=== PATIENT | female | born 1995 | race Caucasian/White ===

== ENCOUNTER 2017-02-12 11:31 | Inpatient (IN) | payer OTHER, MEDICAID ==
[~2017-02-12] VITALS: Ht 149.9 cm; Wt 69.1 kg
[2017-02-12] VITALS (7 sets, daily range): BP systolic 98–122; BP diastolic 36–73; PULSE 121–143; RESP 25–33; O2SAT 97–100
[~2017-02-12 11:31] MED LIST: CITA20TA11 PO; INSU100I18 SUBQ; INSU100V7 SUBQ
--- NOTE | 2017-02-12 11:56 | ED.REPORT ---
HPI-General Illness Date of Service Feb 12, 2017 ED Provider: Dr. Colmenares A 21 year old female with a history of type I diabetes, who uses an insulin pump , presents to the ED, accompanied by sister, complaining of high blood sugar onset yesterday, the patient says she is out of Humalog. Her last measurable glucose was yesterday, and was around 600. Her glucometer at home will not register her glucose level anymore as it is too high. Associated symptoms include vomiting onset 0300, and lower back pain. She denies any sense of infection. Nursing Notes Stated Complaint: HIGH BLOOD SUGAR Chief Complaint: General Complaint Nursing Notes Reviewed: Yes Allergies: Coded Allergies: [place] (Verified Allergy, Unknown, 10/20/15) gluten (Verified Allergy, Unknown, 10/20/15) Scheduled Insulin Lispro (HumaLOG U100 Insulin Pen) 100 Unit/1 Ml Insuln.pen Unknown Dose SUBQ TIDWM Miscellaneous Medications ([insulin pump]) Insulin Glargine,Hum.rec.anlog (Toujeo Solostar) 300 Unit/Ml (1.5 Ml) Insuln.pen General Time Seen by MD: 11:55 Chief Complaint Other (High blood sugar) Hx Obtained From: Patient, Other family... (sister) Arrived By: Walk-in Onset Occurred: Yesterday Symptom Duration: Since onset Severity: Current: Moderate Severity: Maximum: Moderate Recent Healthcare: No recent doctor visit Similar Sx Previous: No Past Medical History Past Medical History Insulin-dependent diabetes with recurrent multiple episodes of DKA Idiopathic pancreatitis (recurrent) Solitary right kidney Irregular periods scoliosis Celiac disease Reports: Diabetes mellitus Past Surgical History Direct Central line placement Reports: Cholecystectomy Smoking History Light Tobacco Smoker Social History Alcohol Use: "Social" Drug Use: Denies drug use Ambulatory Status Independent Review of Systems High blood sugar. Denies sense of infection. Full Review of Systems Constitutional: Denies: Chills, Fever GI: Reports: Vomiting Musculoskeletal: Reports: Back pain Complete sys rev & neg: except as marked. Physical Exam Vital Signs Vital Signs Date Time Temp Pulse Resp B/P Pulse Ox O2 Delivery O2 Flow Rate FiO2 02/12/17 13:34 121 28 107/36 100 02/12/17 12:45 132 32 115/44 100 Room Air 02/12/17 12:27 131 33 98 Room Air 02/12/17 11:43 36.8 122 32 116/73 97 Room Air Initial VS: Reviewed General/Constitutional: Awake, Alert Alertness: Positive: Lethargic, Responds to verb stimuli, Somnolent Distress / Hydration: Positive: Dehydration severe, Distress severe Behavior: Positive: Hyperventilating, Withdrawn Appearance / Presentation: Positive: Toxic appearing, Uncomfortable, Underweight Head / Eyes: Atraumatic, Normocephalic, PERRL, EOMI ENT: Atraumatic Mouth: Positive: Mucous membranes dry Respiratory / Chest: Atraumatic, Breath sounds NL, Breath sounds = bilat, No respiratory distress, No rales, No rhonchi, No wheezing Cardiovascular: Heart rate NL, Regular rhythm, Heart sounds NL, No gallop, No murmurs, No rubs Tenderness/Guarding/Rebound: Positive: Tender diffuse (mild) Skin: Atraumatic, Color NL, Warm, Dry Neurologic: Oriented X3, Speech NL Interpretation & Diagnostics Lab Results Interpretation Result Diagram: 02/12/17204402/13/17 0440 Test 02/12/17 12:15 02/12/17 13:53 Hemoglobin A1c 8.6% (4.8-5.6) Lipase 12U/L (13-60) Hold Lane Top Tube Received (Received) Ketones Moderate (Negative) Urine Color Straw (YELLOW) Urine Appearance Hazy (CLEAR,HAZY) Urine pH 5.5 (5.0-8.0) Urine Specific [place] 1.015 (1.003-1.035) Urine Protein Tracemg/dL (NEG,TRACE) Urine Glucose (UA) 1000mg/dL (NEGATIVE) Urine Ketones 80mg/dL (NEGATIVE) Urine Occult Blood Trace (NEGATIVE) Urine Nitrite Negative (NEGATIVE) Urine Bilirubin Negative (NEGATIVE) Urine Urobilinogen Normalmg/dL (NORMAL) Urine Leukocyte Esterase Negative (NEGATIVE) Urine RBC 0-2/hpf (0-2) Urine WBC 0-5/hpf (0-5) Urine Epithelial Cells Occasional/hpf (NONE-MOD) Urine Crystals None seen (NONE SEEN) Urine Bacteria Few/hpf (NONE-FEW) Urine Hyaline Casts None/lpf (NONE) Urine Granular Casts None seen (NONE SEEN) Urine Waxy Casts None seen (NONE SEEN) Urine Red Blood Cell Casts None seen (NONE SEEN) Urine White Blood Cell Casts None seen (NONE SEEN) Urine Mucus None seen (None Seen) Urine Trichomonas None seen (NONE SEEN) Urine Yeast None (NONE SEEN) Urinalysis Comment None Urine Culture Reflexed Not indicated X-Ray Chest Interpretation Chest Xray Interpretation: IMPRESSION: Tip of central venous catheter projects over the atriocaval junction. Dictated by: Leny Mayo MD, PhD on 02/12/2017 at 15:12 Approved by: eLny Mayo MD, PhD on 02/12/2017 at 15:13 Interpretation / Wet Read by: Interpret - Radiologist Procedures Central Line Placement Time: 14:24 Procedure Performed by: ED physician Consent / Setup / Site Prep: Consent from patient, Time-out performed, Pulse oximeter applied, cardiac monitor applied, Hand hygiene observed, Standard surgical scrub, Max barrier precaution, Sterile drapes applied, Position supine Skin Preparation Agent: Hibiclens - Chlorhexidine Local Anesthesia: Lidocaine 1% Side / Location / Ultrasound: Internal jugular right Catheter / Lumen / Technique: Triple lumen, Seldinger technique, Good blood return Central Line Tip Location: Cath tip positioned in (Superiour Vena Cava) Post-Procedure / Complications: Dressing placed, Tolerated procedure well, Patient stable Re-Eval/Medical Decision Med Decision/Clinical Course Patient is extremely toxic appearing initially and peripheral IV access was ultimately established in the right before meals with a 20-gauge Angiocath. This seemed reasonably sufficient for time we were able to get in to an half to 3 L in a couple of hours improving her vital signs moderately. Ultimately we decided that central venous catheterization was appropriate given the desire to administer more volume as well as a titrated insulin drip. Repeat basic metabolic panel showed persistent hyperkalemia this information was obtained as the patient was being transferred to the ICU and this information was transmitted to Dr. iLao. The initial hyperkalemia value was treated with IV calcium but with no other agents because the EKG was normal, that is, not showing signs of acute hyperkalemia with T wave changes, and because of my concern of causing inadvertent hypokalemia as the acidosis was likely to be corrected shortly. Source of Hx: Old records Time of Eval: 12:30 Re-Evaluation/Progress Note: Rechecked patient who is in a lot of pain. IV is established, and she is doing well with IV. Time of Eval: 14:50 Patient Status: Condition improved Re-Evaluation/Progress Note: Rechecked patient who is stable after CLP procedure. Time of Eval: 14:24 Re-Evaluation/Progress Note: Rechecked patient and perfromed Central Line Placement Procedure. Consultation : Referral / Consult Name: Jarrod Liao MD Consulted With: Hospitalist Statistical Developer: Agrees with eval, Agrees with plan, Accepts admit Note: At [facility] 1430, dicussed patient case with Dr. Liao who accepts patient admit. Counseled Regarding: Diagnosis, Lab results, Need for follow-up, When/why to return to ED Discharge & Departure Primary Impression: DKA, type 1 Diabetes mellitus complication detail: without coma Qualified Code: E10.10 - Type 1 diabetes mellitus with ketoacidosis without coma Additional Impressions: Severe dehydration Hyperkalemia Disposition: ADMITTED TO HOSPITAL Referrals: Sonu Stoddard MD (PCP) Crit Care Except Billable Proc Time Spent: 30-74 minutes Services Performed: Patient management by me, Time spent at bedside, Reviewing test results, Discussing patient care Scribe Attestation Portions of this note were transcribed by Miguel Dillard. I, Dr. Colmenares personally performed the history, physical exam and medical decision-making; I reviewed and confirmed the accuracy of the information in the transcribed note. Signed by: Marleni Falcon, 02/12/2017, 1540. copies to: Sonu Stoddard MD, Kirk H MD Feb 12, 2017 11:55 Miguel Dillard Feb 12, 2017 12:00 Time: 14:24 Procedure Performed by: ED physician Consent / Setup / Site Prep: Consent from patient, Time-out performed, Pulse oximeter applied, cardiac monitor applied, Hand hygiene observed, Standard surgical scrub, Sterile drapes applied Skin Preparation Agent: Hibiclens - Chlorhexidine Post-Procedure / Complications: Dressing placed, Tolerated procedure well, Patient stable Re-Eval/Medical Decision Source of Hx: Old records Time of Eval: 12:30 Re-Evaluation/Progress Note: Rechecked patient who is in a lot of pain. IV is established, and she is doing well with IV. Time of Eval: 14:50 Patient Status: Condition improved Re-Evaluation/Progress Note: Rechecked patient who is stable after CLP procedure. Time of Eval: 14:24 Re-Evaluation/Progress Note: Rechecked patient and perfromed Central Line Placement Procedure. Consultation : Referral / Consult Name: Jarrod Liao MD Consulted With: Hospitalist Statistical Developer: Agrees with eval, Agrees with plan, Accepts admit Note: At approximatley 1430, dicussed patient case with Dr. Liao who accepts patient admit. Counseled Regarding: Diagnosis, Lab results, Need for follow-up, When/why to return to ED Discharge & Departure Disposition: ADMITTED TO HOSPITAL Referrals: Sonu Stoddard MD (PCP) Crit Care Except Billable Proc Time Spent: 30-74 minutes Services Performed: Patient management by me, Time spent at bedside, Reviewing test results, Discussing patient care Scribe Attestation Portions of this note were transcribed by Miguel Dillard. Dr. Darrian Cao personally performed the history, physical exam and medical decision-making; I reviewed and confirmed the accuracy of the information in the transcribed note. Signed by: Marleni Falcon, 02/12/2017, 1540. copies to: Sonu Stoddard MD, Kirk H MD Feb 12, 2017 11:55 Miguel Dillard Feb 12, 2017 12:00 Crit Care Except Billable Proc Time Spent: 30-74 minutes Services Performed: Patient management by me, Time spent at bedside, Reviewing test results, Discussing patient care Scribe Attestation Portions of this note were transcribed by Miguel Dillard. Dr. Darrian Cao personally performed the history, physical exam and medical decision-making; I reviewed and confirmed the accuracy of the information in the transcribed note. Signed by: Marleni Falcon, 02/12/2017, 1226. copies to: Sonu Stoddard MD, Kirk H MD Feb 12, 2017 11:55 Miguel Dillard Feb 12, 2017 12:00
[2017-02-12] MEDS ORDERED: 0.9% Sodium Chloride 1,000 ML IV ONE ×4 (11:59→18:35)
[2017-02-12] MEDS ORDERED: 0.9% Sodium Chloride 1,000 ML IV SCH (12:00)
[2017-02-12] MEDS ORDERED: Ondansetron 2 mg/mL 2 mL Inj IVPUSH PRN ×2 (12:00→14:10)
--- NOTE | 2017-02-12 12:25 | ABG ---
DateTimeAnalyzed 12:21:00 -_ pH ____7.062 - pCO2 ____9.1__ -mmHg pO2 183 -mmHg HCO3- ____2.5__ -mmol/L ABE __-28.8__ -mmol/L tHb ___15.5__ -g/dL O2Hb ___91.8__ -% COHb ____5.3__ -% MetHb ____1.1__ -% sO2 ___98.1__ -% FIO2 ___21.0__ -% Drawn By as - Date/Time Notified____ 12:24:00 -_ Notified By AMS - Notified Whom DR MILAGROS - B 759 -mmHg tO2 ___20.4__ -Vol% Kevyn test N/A -
[2017-02-12] MEDS ORDERED: INSU300I (12:30)
[2017-02-12] MEDS ORDERED: insulin pump (12:33)
[2017-02-12 12:34] LABS: BASOPHILS % (AUTO) 0.2 % (0-3); EOSINOPHILS % (AUTO) 0 % (0-5); MONOCYTES % (AUTO) 4.8 % (4-12); Mean Corpuscular Hemoglobin 29.3 pg (27.0-35.0); Mean Corpuscular Volume 86.2 fL (81-100); NEUTROPHILS % (AUTO) 88.8 % (40-74); Platelet Count 439 bil/L (150-400)
[2017-02-12] MEDS: Insulin Human REGular 100 Units/100 mL NS IV SCH ×2 (12:40)
[2017-02-12] MEDS ORDERED: D5W1/2NS 1,000 mL IV PRN (12:40)
[2017-02-12] MEDS ORDERED: Insulin Human REGular 300 Unit/3 mL Inj IV PRN (12:40)
[2017-02-12] MEDS: HYDROmorphone 1 mg/mL Inj IVPUSH PRN ×2 (12:52→16:21)
[2017-02-12 13:44] LABS: Lipase 12 U/L (13-60); Magnesium 2.5 mg/dL (1.6-2.6)
[2017-02-12] MEDS ORDERED: Calcium GLUCOnate 10% (Gm) 1 Gm/10 mL Inj ONE (13:45)
[2017-02-12] MEDS ORDERED: Calcium GLUCOnate 10% (Gm) 1 Gm/10 mL Inj IVPUSH ONE (13:55)
[2017-02-12] MEDS ORDERED: Polyethylene Glycol (PEG) 17 Gm Powder PO PRN (14:10)
[2017-02-12] MEDS ORDERED: Alum-Mag Hydrox-Simeth 30 mL Suspension PO PRN (14:10)
--- NOTE | 2017-02-12 14:20 | PCM.HPMED ---
Subjective Date of Service Feb 12, 2017 Primary Provider: Admitting Physician: Primary Care Physician: Rosalba Han PA-C Attending Physician: Chief Complaint: DKA History of Present Illness: Ms. Penaloza is a 21-year-old female with past medical history of pancreatitis and type I diabetes (wears insulin pump) presented to [facility] Emergency Department in the company of her sister secondary to high blood glucose levels 2 days. Patient reportedly ran out of her insulin for her pump 2 days ago. She reported blood sugars yesterday at 555, stating that she could not take her she states she could not take her insulin yesterday as she ran out or perhaps it . She states that this morning her blood sugars were over 600 and her home machine could not read any higher). She reportedly took 30 units of long-acting insulin, Trojan@0 800 today. She is complaining of lower back pain, nausea with vomiting 1 episode this morning at 0 300. Denies headache, chest pain, visual changes or symptoms. She is somewhat confused though his awake and alert and able to answer questions appropriately A comprehensive review of systems was conducted with the patient and found to be negative except as above in the history of present illness. In the emergency department patient was given 2 L fluid, and additional liter was confusing at time of interview. Calcium gluconate and insulin bolus. Patient also received IV access through a central line. Allergies Coded Allergies: [place] (Verified Allergy, Unknown, 10/20/15) gluten (Verified Allergy, Unknown, 10/20/15) Home Medications Per med rec home meds include: Insulin glargine Insulin lispro Discontinued home meds reported Citalopram 20 mg by mouth daily Insulin glargine 15 units subcutaneous at bedtime PMH Insulin-dependent diabetes with recurrent multiple episodes of DKA Idiopathic pancreatitis (recurrent) Solitary right kidney Celiac's disease Irregular periods scoliosis Celiac disease. Allerigic to almond nuts. Reports: Diabetes mellitus Surgical History Reports cholecystectomy Social History Hx Alcohol Use: No Hx Substance Use: No Hx Tobacco Use: No Smoking Status: Light Tobacco Smoker Living Arrangement: with Family (lives with mother who is currently out of town) Exam Vital Signs Vital Sign - Last Date Time Temp Pulse Resp B/P Pulse Ox O2 Delivery O2 Flow Rate FiO2 02/12/17 13:34 121 28 107/36 100 02/12/17 12:45 Room Air 02/12/17 11:43 36.8 Exam General: Patient laying in hospital bed, awake and alert somewhat appropriately interactive in mild distress. HEENT: Normocephalic, atraumatic. External ears without defect. Pupils equal, round, and reactive to light and accommodation. Anicteric sclerae, moist conjunctivae, and no lid lag. Oropharynx free of erythema and cobble stoning with moist mucosa. Neck: Supple with full range of motion. No jugular venous distension. No bruits. Cardiovascular: Regular rate and rhythm with no murmurs, rubs, or gallops appreciated Pulmonary: Clear to auscultation bilaterally with no crackles, wheezes, or rhonchi. Normal respiratory effort with no use of accessory muscles. Abdomen: Bowel tones present. Soft, nontender, nondistended. No hepatosplenomegaly or masses appreciated. Extremities: No clubbing, cyanosis, edema appreciated Skin: Normal temperature, turgor, and texture Neurological: Cranial nerves grossly intact Psychiatric: Somnolent affect, able to converse appropriately though mildly confused. Lab and Diagnostics Result Diagram: 02/12/17 1215 02/12/17 1215 X-Rays, CTs and MRIs . X-RAY CHEST ONE VIEW, PORTABLE IMPRESSION: Tip of central venous catheter projects over the atriocaval junction. Dictated by: Leny Mayo MD, PhD on 02/12/2017 at 15:12 Additional Diagnostics: DateTimeAnalyzed 12:21:00 -_ pH ____7.062 - pCO2 ____9.1__ -mmHg pO2 183 -mmHg HCO3- ____2.5__ -mmol/L ABE __-28.8__ -mmol/L tHb ___15.5__ -g/dL O2Hb ___91.8__ -% COHb ____5.3__ -% MetHb ____1.1__ -% sO2 ___98.1__ -% FIO2 ___21.0__ -% Drawn By as - Date/Time Notified____ 12:24:00 -_ Notified By AMS - Notified Whom DR MILAGROS - B 759 -mmHg tO2 ___20.4__ -Vol% Kevyn test N/A - Assessment & Plan Ms. Penaloza is a 21-year-old female with past medical history of pancreatitis and type I diabetes (wears insulin pump) admitted for DKA. Hospital day 1 1. Sirs. Present on admission. Ongoing - Criteria met on admission with tachycardia, tachypnea, leukocytosis - Echocardiogram tachypnea most likely secondary to #2. - Leukocytosis most likely secondary to stress response - Urine showed no evidence of infection - Lactic acid pending 2. Diabetic ketoacidosis.Acute on chronic. present on admission. Ongoing - Secondary to medication noncompliance - Blood glucose found to be 977 in ED - Anion gap 38 - To 3 L given ED - Continue aggressive IV fluid replenishment with normal saline - DKA IV protocol initiated - CMP, MG every 4 3. Hyperkalemia. Acute. Present on admission. Ongoing - On admission potassium 7.5, repeat level VII.4 status post calcium gluconate administration 4. YANI. Present on admission. Ongoing - Fluids as in #1 5. Type I diabetes. Chronic. Present on admission. Ongoing - DKA IV protocol as in #1 6. Nausea and vomiting. Acute. Present on admission. Ongoing - Secondary to #1 - Zofran when necessary 7. Leukocytosis. Acute. Present on admission. Ongoing - Most likely secondary to stress response - Afebrile - Urinalysis showed no evidence of infection - We will continue to monitor Patient Status: Patient was admitted under inpatient status with expected length of stay greater than two midnights due to severity of presenting symptoms , risk of adverse event, and complexity of treatment plan. Pain Evaluation: Adequate Pain Control VTE Prophylaxis: Sub-Q Heparin (Unfractionated) Resuscitation Status: CPR: Attempt Resuscitation Attending Statement The patient was seen and examined together with Dr. Douglas on 02/12/2017 and I agree with the history, exam and plan as outlined in the note above. . copies to: Rosalba Han PA-C, GILES A DO Feb 12, 2017 14:20 Jarrod Liao MD Feb 13, 2017 07:48
[2017-02-12 14:32] LABS: APPEARANCE,URINE HAZY (CLEAR,HAZY); COLOR,URINE STRAW (YELLOW); OCCULT BLOOD,URINE TRACE (NEGATIVE); PH,URINE 5.5 (5.0-8.0); UROBILINOGEN,URINE NORMAL (NORMAL)
--- NOTE | 2017-02-12 15:15 | DRSVH ---
PROCEDURE: X-RAY CHEST ONE VIEW, PORTABLE ([id number]) INDICATIONS: POST CENTRAL LINE PLACEMENT TECHNIQUE: One view of the chest was acquired. COMPARISON: [facility], CR, XR CHEST 1VW (PORTABLE), 10/07/2015, 11:36. FINDINGS: Surgical changes and devices: Central venous catheter projects to the atriocaval junction via a right IJ approach. Lungs and pleura: No pleural effusions or pneumothorax. Lungs are clear. Mediastinum: Mediastinal contours appear normal. Heart size is normal. Bones and chest wall: No suspicious bony lesions. Overlying soft tissues appear unremarkable. IMPRESSION: Tip of central venous catheter projects over the atriocaval junction. Dictated by: Leny Mayo MD, PhD on 02/12/2017 at 15:12 Approved by: Leny Mayo MD, PhD on 02/12/2017 at 15:13
[2017-02-12] MEDS: 0.9% Sodium Chloride 1,000 ML IV SCH ×2 (16:22→23:05)
[2017-02-12] MEDS: Heparin 5,000 Unit/mL Inj SUBQ SCH (16:52)
[2017-02-12 17:04] LABS: Magnesium 2.1 mg/dL (1.6-2.6)
--- NOTE | 2017-02-12 18:30 | NUR ---
Admit Admitted to floor around 1600. Drowsy, but oriented. Moaning upon arrival. C/O lower back pain 02/03. Dilaudid 1 mg IVP effective. Patient sleeping most of shift now. Completed 4th L NS and now IVF running at 100/hr. HR from 130s to 150s, ST. MDs aware. Current HR 135 after 4th Liter of fluid. HR increased with any activity. MD wanting patient to stay in bed. Using bedpan for now. BP with maps 64-67. MDs aware. Insulin gtt per DKA protocol. Last BS was 655. Current glucose pending. See DKA flow sheet. ICE chips only for now. Oral swabs provided for dry mouth. Denies nausea. Continue to monitor closely.
[2017-02-12 20:54] LABS: BASOPHILS % (AUTO) 0.1 % (0-3); EOSINOPHILS % (AUTO) 0 % (0-5); MONOCYTES % (AUTO) 12.8 % (4-12); Mean Corpuscular Hemoglobin 29.8 pg (27.0-35.0); Mean Corpuscular Volume 86.6 fL (81-100); NEUTROPHILS % (AUTO) 70.6 % (40-74); Platelet Count 303 bil/L (150-400)
[2017-02-12 21:14] LABS: Magnesium 1.8 mg/dL (1.6-2.6)
[2017-02-13] MEDS: Insulin Human REGular 100 Units/100 mL NS IV SCH ×2 (00:22)
[2017-02-13] MEDS: Heparin 5,000 Unit/mL Inj SUBQ SCH ×3 (00:23→15:57)
[2017-02-13 00:30] VITALS: BP 114/70; PULSE 125; RESP 18; O2SAT 100
[2017-02-13 01:56] LABS: Magnesium 1.8 mg/dL (1.6-2.6)
[2017-02-13] MEDS: 0.9% Sodium Chloride 1,000 ML IV SCH ×2 (03:50→12:29)
[2017-02-13 04:30] VITALS: BP 96/58; PULSE 117; RESP 20; O2SAT 99
[2017-02-13 05:26] LABS: Magnesium 1.6 mg/dL (1.6-2.6)
--- NOTE | 2017-02-13 06:02 | NUR ---
P: c/o back and R IJ site discomfort I: reposition pt E: DKA insulin drip protocol. Very sleepy, oriented. Intermittently c/o back and R IJ site discomfort. After repositioning falls back into a deep sleep. Prefers supine position. Does move self some in bed. Intermittently awakens during BS check, moans. Denies N/V. Taking in sips of water and ice chips. Tele ST. Stable BP. Febrile. Pt states feels cold. Void x 1.
[2017-02-13 08:00] VITALS: BP 102/82; PULSE 114; RESP 21; O2SAT 99
[2017-02-13 12:00] VITALS: BP 93/54; PULSE 117; RESP 25; O2SAT 98
--- NOTE | 2017-02-13 12:22 | NUR ---
Social Work: Initial Assessment D: Per EMR review, pt is a 21 year old female admitted for DKA. pt is [employer] Traditional Med Plan with DSHS supplement. PCP is Rosalba Han PA-C. NOK is Shahida Penaloza, mother. Advanced directives not completed- pt declined information from CONSTRUCTION RE[employer]. Readmit score is moderate, 3/8. CONSTRUCTION RECRUITER met with pt at bedside to discuss dcp. Sw role explained and contact info provided. Pt lives at home with her mother. She is I with ADLs and uses no DME. Pt drives and has never had HH or skilled rehab. Pt has no concerns about discharge home and states that her sister will transport her home when ready. Pt has been I during admission and no further sw needs have been identified at this time. A: pt who is I at baseline. P: Anticipate pt to discharge home when medically stable; CONSTRUCTION RECRUITER to continue to follow. ILEANA Posada
[2017-02-13] MEDS ORDERED: Sodium Chloride LOK Flush 10 mL Syringe IVFLUSH PRN ×2 (12:25)
[2017-02-13] MEDS ORDERED: Insulin Human REGular 100 Units/100 mL NS IV SCH ×2 (15:30)
[2017-02-13 16:00] VITALS: BP_SYST 108; BP_SYST 147; BP_DIAS 100; BP_DIAS 58; PULSE 114; PULSE 125; RESP 18; RESP 25; O2SAT 92; O2SAT 99
--- NOTE | 2017-02-13 17:56 | PCM.PNMED ---
Subjective Date of Service Feb 13, 2017 Subjective 21-year-old woman with type I diabetes mellitus presents with DKA due to self- management failure in insulin pump therapy. She reports feeling very sleepy but no focal complaints today. No significant nausea and vomiting. She has reduced appetite. Not getting out of bed yet. Exam Vital Signs Vital Sign - Last Date Time Temp Pulse Resp B/P Pulse Ox O2 Delivery O2 Flow Rate FiO2 02/13/17 16:00 37.1 114 25 108/58 99 Room Air Intake and Output 02/12/17 02/12/17 02/13/17 Cumulative From/Thru 15:00 23:00 07:00 02/12/17 11:43 - 02/13/17 05:06 Intake Total 2000 ml 1634 ml 2822 ml 6456 ml Output Total 500 ml 950 ml 1450 ml Balance 2000 ml 1134 ml 1872 ml 5006 ml IV Total 2000 ml 1634 ml 2822 ml 6456 ml Output Urine Total 500 ml 950 ml 1450 ml # Voids 1 1 # Bowel Movements 0 0 Exam General: Generally healthy, slightly pale in no acute distress HEENT: sclerae anicteric, oral mucosa moist Neck: no JVD Chest: clear to auscultation Cardiac: S1S2, no murmur Abdomen: BS normal, non-tender Extremities: No pitting edema Neuro: A&O, cranial nerves symmetric, motor strength 5/5, coordination normal IVs and Medications Medications Reviewed: Medications were reviewed in detail Lab and Diagnostics Result Diagram: 02/12/175 02/13/17 1604 X-Rays, CTs and MRIs . X-RAY CHEST ONE VIEW, PORTABLE IMPRESSION: Tip of central venous catheter projects over the atriocaval junction. Dictated by: Leny Mayo MD, PhD on 02/12/2017 at 15:12 Additional Diagnostics DateTimeAnalyzed 12:21:00 -_ pH ____7.062 - pCO2 ____9.1__ -mmHg pO2 183 -mmHg HCO3- ____2.5__ -mmol/L ABE __-28.8__ -mmol/L tHb ___15.5__ -g/dL O2Hb ___91.8__ -% COHb ____5.3__ -% MetHb ____1.1__ -% sO2 ___98.1__ -% FIO2 ___21.0__ -% Drawn By as - Date/Time Notified____ 12:24:00 -_ Notified By AMS - Notified Whom DR MILAGROS - B 759 -mmHg tO2 ___20.4__ -Vol% Kevyn test N/A - Assessment & Plan 1. Sirs. Present on admission. Criteria met on admission with tachycardia, tachypnea, leukocytosis. MAXIMUM TEMPERATURE was 37.8. Chest x-ray was clear. Urinalysis unremarkable. No focal symptoms to suggest infection at other source. - Resolved. 2. Diabetic ketoacidosis.Acute on chronic. Anion gap 38 on admission with positive ketones. Arterial pH 7.06 on admission with PaCO2 9. Glucose 977 on presentation. DKA secondary to medication noncompliance. - Reduce frequency of electrolyte chem panel - Continue IV insulin until patient taking by mouth well - Plan to switch to basal bolus and discuss management of insulin pump at time of discharge 3. Hyperkalemia. Acute. Present on admission. Ongoing - On admission potassium 7.5, repeat level VII.4 status post calcium gluconate administration - Resolved 4. YANI. Present on admission. Ongoing -Resolved 5. Type I diabetes. Chronic. Present on admission. Ongoing - Plan for further therapy when patient is taking by mouth well and ready for discharge 6. Nausea and vomiting. Acute. Present on admission. Ongoing -Resolving - Zofran when necessary 7. Leukocytosis. Acute. Present on admission. Ongoing - Most likely secondary to stress response - Afebrile - Urinalysis showed no evidence of infection - We will continue to monitor Patient Status: Patient was admitted under inpatient status with expected length of stay greater than two midnights due to severity of presenting symptoms , risk of adverse event, and complexity of treatment plan. VTE Prophylaxis: Sub-Q Heparin (Unfractionated) VTE Mechanical Devices: Intermittant Pneumatic CD Resuscitation Status: CPR: Attempt Resuscitation Time spent 40 min Jacinto Early MD Feb 13, 2017 17:56
--- NOTE | 2017-02-13 18:31 | NUR ---
Mentation/Glucose control Patient has been sleeping most of shift today. She is oriented x3. She does wake to verbal stimulation and even with encouragement to wake, sit up, deep breath, and eat, she continues to sleep. She has been up to the BSC x2 this shift. Voiding well. Denies pain. Insulin DKA protocol running until afternoon with resolution of hyperglycemia and anion gap has closed. Offered lunch meal and patient did eat 1/2 of a chicken breast and drank some broth, so not much intake. MD ordered to switch to insulin gtt non dka protocol and tonight, 2 hours after Lantus given insulin gtt will be dcd. Monitoring closely, now PCC status.
[2017-02-13 19:55] VITALS: BP 101/68; PULSE 111; RESP 22; O2SAT 100
[2017-02-13] MEDS ORDERED: Insulin GLARgine 100 Unit/mL Syringe SUBQ SCH (21:00)
--- NOTE | 2017-02-13 23:13 | NUR ---
changed to sub q insulin pts insulin gtt running gave 24units perico at 2100 BG 134 2 hours after BG 123 turned insulin gtt and IVF off, will cont to recheck BG. Addendum: 02/14/17 at 0510 by SUZANNE SAENZ RN pts BG around 0130 dropping to 107 pt drinking OJ BG 2 hours later 141 see flow sheet for this shifts BG
[2017-02-14 00:18] VITALS: BP 125/69; PULSE 112; RESP 22; O2SAT 98
[2017-02-14] MEDS: Heparin 5,000 Unit/mL Inj SUBQ SCH ×2 (00:20→08:36)
[2017-02-14 03:41] VITALS: BP 106/66; PULSE 104; RESP 20; O2SAT 100
[2017-02-14 05:48] LABS: Mean Corpuscular Hemoglobin 29.3 pg (27.0-35.0); Mean Corpuscular Volume 84.1 fL (81-100)
[2017-02-14 08:25] VITALS: BP 122/84; PULSE 107; RESP 18; O2SAT 98
--- NOTE | 2017-02-14 08:38 | NUR ---
Blood Sugar Pt morning blood glucose 63. Pt states slight shakiness. Administered [place] Juice. Reassess. Addendum: 02/14/17 at 0951 by SONNY MCDONALD RN 0830 blood glucose 136. aware. Care continues.
--- NOTE | 2017-02-14 10:32 | NUR ---
CODEY DM diet education: DM diet education was offered to pt 02/13. Pt did not want to review the diet but was willing to look over the handouts on her own time. Pt last attended [facility] Diabetes Education program in March of 2014.
--- NOTE | 2017-02-14 10:54 | NUR ---
Social Work: Readiness for Discharge D: Per EMR review, pt is on day 2 of hospitalization for DKA. Pt is not medically stable for discharge, anticipate later today. Pt to receive diabetes education today. Pt must continue eating and ambulating prior to discharge. Pt to discharge home with sister to transport via POV. No anticipated discharge needs, SW will continue to follow as needs arise. A: pt who is I at baseline. P: Pt to discharge home with sister to transport via POV. No anticipated discharge needs. SW will continue to follow. ILEANA Lo
[2017-02-14 11:38] VITALS: BP 116/59; PULSE 101; RESP 18; O2SAT 99
[2017-02-14] MEDS ORDERED: Glucose 40% Oral Gel 15 Gm Tube PO PRN (12:35)
--- NOTE | 2017-02-14 13:02 | NUR ---
Blood sugar Pt noon blood sugar 106, pt at 100% of breakfast. Pt states she does not want to walk with CVC in. States it hurts when she moves her head. notified.
--- NOTE | 2017-02-14 14:57 | NUR ---
DC CVC/Ambulation IV therapy DC'd CVC at approximately 1330. Pt educated to wait at least 20 minutes before moving or getting out of bed. Pt up and ambulating three times around unit with this RN at 1450. Pt tolerated ambulation. Pt denies SOB, dizziness, pain or lightheadedness. MD notified. Care continues.
[2017-02-14] MEDS ORDERED: INSLIS SUBQ (15:27)
--- NOTE | 2017-02-14 15:32 | PCM.DIMED ---
Discharge Instructions Date of Service Feb 14, 2017 Dates of Hospitalization Feb 12, 2017 at 14:47 Discharge Diagnosis Discharge Diagnosis Diabetic ketoacidosis; type I diabetes mellitus Medication Instructions You should proceed to refill your lispro insulin and resume your insulin pump this afternoon, promptly after discharge from hospital. Test Results A1c 8.6% Diet Diabetic Activity No restrictions Call your provider Vomitting Patient Instructions #1 try to get on regular timings for your meals from one day to the next #2 learned to count carbohydrate exchange units and keep your carpal rows similar for each meal from day to day #3 resume your previous pump settings, basal rate, nutritional carbohydrate coverage (1:11g or 1.5 units per carb exchange), correctional 1 unit for every 30 MG/DL above 130 #4 check your blood sugar 4 times per day: Prior to each of 3 meals and at bedtime #5 he must calibrate your CGM according to the device instructions. Follow-up Provider: Rosalba Han PA-C Follow-up with PCP in: 1 week Provider: Jacinto Early MD Follow-up in: 3 weeks (contact the endocrinology clinic for a follow-up appointment with Dr. Early) Jacinto Early MD Feb 14, 2017 15:31
--- NOTE | 2017-02-14 16:48 | NUR ---
Discharge Pt discharged at approximately 1625 to home. Pt given educational material for Diabetic Ketoacidosis. Next dose for all medications clearly written and dated, instructions from MD and both follow up appointments highlighted. Pt acknowledged and understood all information. Both IV's DC'd with catheters intact. New bandage over CVC site, old bandage falling off. Pt reminded to keep bandage on CVC site for 24 hours per IV therapy RN. Patient left with all personal belongings. This RN escorted pt to the front door.
[2017-02-14] MEDS ORDERED: Insulin LISPRO 300 Unit/3 mL Inj SUBQ SCH (17:30)
--- NOTE | 2017-02-15 18:52 | PCM.DC.MED ---
Discharge Summary Date of Service Feb 15, 2017 Dates of Hospitalization Date of Hospital Admission Feb 12, 2017 at 14:47 Date of Discharge: Feb 14, 2017 Providers: Admitting Physician: Jarrod Liao MD Primary Care Physician: Rosalba Han PA-C Attending Physician: Jarrod Liao MD Diagnosis at Time of Discharge Diagnosis at Time of Discharge Diabetic ketoacidosis; type I diabetes mellitus Procedures XRay, CTs & MRIs . X-RAY CHEST ONE VIEW, PORTABLE IMPRESSION: Tip of central venous catheter projects over the atriocaval junction. Dictated by: Leny Mayo MD, PhD on 02/12/2017 at 15:12 Other Diagnostics DateTimeAnalyzed 12:21:00 -_ pH ____7.062 - pCO2 ____9.1__ -mmHg pO2 183 -mmHg HCO3- ____2.5__ -mmol/L ABE __-28.8__ -mmol/L tHb ___15.5__ -g/dL O2Hb ___91.8__ -% COHb ____5.3__ -% MetHb ____1.1__ -% sO2 ___98.1__ -% FIO2 ___21.0__ -% Drawn By as - Date/Time Notified____ 12:24:00 -_ Notified By AMS - Notified Whom DR MILAGROS - B 759 -mmHg tO2 ___20.4__ -Vol% Kevyn test N/A - Brief History History of Present Illness (per admission note): Ms. Penaloza is a 21-year-old female with past medical history of pancreatitis and type I diabetes (wears insulin pump) presented to [facility] Emergency Department in the company of her sister secondary to high blood glucose levels 2 days. Patient reportedly ran out of her insulin for her pump 2 days ago. She reported blood sugars yesterday at 555, stating that she could not take her she states she could not take her insulin yesterday as she ran out or perhaps it . She states that this morning her blood sugars were over 600 and her home machine could not read any higher). She reportedly took 30 units of long-acting insulin, Trojan@0 800 today. She is complaining of lower back pain, nausea with vomiting 1 episode this morning at 0 300. Denies headache, chest pain, visual changes or symptoms. She is somewhat confused though his awake and alert and able to answer questions appropriately . Hospital Course 1. Sirs. Present on admission. Criteria met on admission with tachycardia, tachypnea, leukocytosis. MAXIMUM TEMPERATURE was 37.8. Chest x-ray was clear. Urinalysis unremarkable. No focal symptoms to suggest infection at other source. - Resolved. 2. Diabetic ketoacidosis.Acute on chronic. Anion gap 38 on admission with positive ketones. Arterial pH 7.06 on admission with PaCO2 9. Glucose 977 on presentation. DKA secondary to medication noncompliance. - Switched to basal bolus subcutaneous insulin - Patient was given the choice of returning to Lantus NovoLog basal bolus versus resuming pump and she elected the latter 3. Hyperkalemia. Acute. Present on admission. - On admission potassium 7.5, treated emergently - Resolved 4. YANI. Present on admission. -Resolved 5. Type I diabetes. Chronic. Hemoglobin A1c 8.6%. She acknowledged that she does not use her CGM to calculate bolus insulin, often estimating. She does not know her basal rates. She did not respond to her insulin while being depleted for 2 days. She seems to be a poor candidate for insulin pump. I advised her to return to subcutaneous insulin management and optimize this before initiating the pump, but she chose to stay with the pump. - Referred to endocrine clinic for further outpatient management - She needs refresher course and carb counting - She is a more regular meal pattern and carb intake profile 6. Leukocytosis. Acute. Present on admission. - Resolved with no evidence of infection . Exam Vital Signs (Last) Date Time Temp Pulse Resp B/P Pulse Ox O2 Delivery O2 Flow Rate FiO2 02/14/17 11:38 36.7 101 18 116/59 99 Room Air 02/13/17 16:00 Exam General: Generally healthy, slightly pale in no acute distress HEENT: sclerae anicteric, oral mucosa moist Neck: no JVD Chest: clear to auscultation Cardiac: S1S2, no murmur Abdomen: BS normal, non-tender Extremities: No pitting edema Neuro: A&O, cranial nerves symmetric, motor strength 5/5, coordination normal Test 02/12/17 12:15 02/12/17 13:53 02/12/17 20:45 02/13/17 00:30 Hemoglobin A1c 8.6% (4.8-5.6) Lipase 12U/L (13-60) Hold Lane Top Tube Received (Received) Ketones Moderate (Negative) Urine Color Straw (YELLOW) Urine Appearance Hazy (CLEAR,HAZY) Urine pH 5.5 (5.0-8.0) Urine Specific [place] 1.015 (1.003-1.035) Urine Protein Tracemg/dL (NEG,TRACE) Urine Glucose (UA) 1000mg/dL (NEGATIVE) Urine Ketones 80mg/dL (NEGATIVE) Urine Occult Blood Trace (NEGATIVE) Urine Nitrite Negative (NEGATIVE) Urine Bilirubin Negative (NEGATIVE) Urine Urobilinogen Normalmg/dL (NORMAL) Urine Leukocyte Esterase Negative (NEGATIVE) Urine RBC 0-2/hpf (0-2) Urine WBC 0-5/hpf (0-5) Urine Epithelial Cells Occasional/hpf (NONE-MOD) Urine Crystals None seen (NONE SEEN) Urine Bacteria Few/hpf (NONE-FEW) Urine Hyaline Casts None/lpf (NONE) Urine Granular Casts None seen (NONE SEEN) Urine Waxy Casts None seen (NONE SEEN) Urine Red Blood Cell Casts None seen (NONE SEEN) Urine White Blood Cell Casts None seen (NONE SEEN) Urine Mucus None seen (None Seen) Urine Trichomonas None seen (NONE SEEN) Urine Yeast None (NONE SEEN) Urinalysis Comment None Urine Culture Reflexed Not indicated Neutrophils (%) (Auto) 70.6% (40-74) Lymphocytes (%) (Auto) 15.9% (14-46) Monocytes (%) (Auto) 12.8% (4-12) Eosinophils (%) (Auto) 0% (0-5) Basophils (%) (Auto) 0.1% (0-3) Lactic Acid Level 1.5mmol/L (0.4-2.0) Test 02/13/17 04:40 02/14/17 05:30 Magnesium Level 1.6mg/dL (1.6-2.6) Total Bilirubin 0.3mg/dL (0.0-1.2) Aspartate Amino Transf (AST/SGOT) 13U/L (0-50) Alanine Aminotransferase (ALT/SGPT) 8U/L (0-32) Alkaline Phosphatase 81U/L (25-150) Total Protein 5.4g/dL (6.4-8.4) Albumin 3.2g/dL (3.4-5.0) White Blood Count 13.5th/mm3 (3.8-10.1) Red Blood Count 3.89mil/mm3 (3.90-5.20) Hemoglobin 11.4g/dL (12.0-15.6) Hematocrit 32.7% (35.0-46.0) Mean Corpuscular Volume 84.1fL (81-100) Mean Corpuscular Hemoglobin 29.3pg (27.0-35.0) Mean Corpuscular Hemoglobin Concent 34.9% (32.0-37.0) Red Cell Distribution Width 12.9% (12.3-15.4) Platelet Count 233bil/L (150-400) Sodium Level 140mEq/L (134-144) Potassium Level 3.7mEq/L (3.5-5.2) Chloride Level 111mEq/L (97-108) Carbon Dioxide Level 17mmol/L (18-29) Blood Urea Nitrogen 7mg/dL (6-20) Creatinine 0.79mg/dL (0.57-1.00) Estimat Glomerular Filtration Rate 132mL/min (>59) Glucose Level 121mg/dL (60-99) Calcium Level 8.1mg/dL (8.5-10.1) Discharge Medications As needed Insulin Human Lispro (HumaLOG U100 Insulin Vial) 100 Unit/Ml Unit 1 UNIT SUBQ DIRECTED PRN PRN insulin pump As directed for insulin pump. Prescribed by: UBALDO ALDANA MD Miscellaneous Medications ([insulin pump]) (Reported) Additional med instructions You should proceed to refill your lispro insulin and resume your insulin pump this afternoon, promptly after discharge from hospital. Followup Plan Disposition: Home Follow-up plan Dr. Aldana to see her in endocrinology clinic Discharge Diet: Diabetic Discharge Activity: No restrictions Patient Instructions #1 try to get on regular timings for your meals from one day to the next #2 learned to count carbohydrate exchange units and keep your carpal rows similar for each meal from day to day #3 resume your previous pump settings, basal rate, nutritional carbohydrate coverage (1:11g or 1.5 units per carb exchange), correctional 1 unit for every 30 MG/DL above 130 #4 check your blood sugar 4 times per day: Prior to each of 3 meals and at bedtime #5 he must calibrate your CGM according to the device instructions. Follow-up Provider: Rosalba Han PA-C Follow-up with PCP in: 1 week Provider: Ubaldo Aldana MD Follow-up in: 3 weeks (contact the endocrinology clinic for a follow-up appointment with Dr. Aldana) Time spent 35 minutes copies to: Rosalba Han PA-C, Jeffrey W MD Feb 15, 2017 18:51
== END 2017-02-14 16:57 | disposition home or self-care (01) | DRG 639 ==
LOC: SED 11:31 → CCU 14:47 → PCC 02-13 16:49
PROVIDERS: ADMIT Internal Medicine; ATTEND Internal Medicine
PROC: 4A033B1 Measurement of Arterial Pressure, Peripheral, Percutaneous Approach (ICD-10-PCS; principal; 2017-02-12)
DX: E10.10 Type 1 diabetes mellitus with ketoacidosis without coma (principal); F17.200 Nicotine dependence, unspecified, uncomplicated; E86.0 Dehydration; E87.5 Hyperkalemia; Z91.14 Patient's other noncompliance with medication regimen; Z96.41 Presence of insulin pump (external) (internal)

== ENCOUNTER 2017-02-24 17:48 | Inpatient (IN) | payer OTHER ==
[~2017-02-24] VITALS: Ht 149.9 cm; Wt 65.8 kg
[~2017-02-24 17:48] MED LIST changes: -CITA20TA11 PO; +INSLIS SUBQ; -INSU100I18 SUBQ; -INSU100V7 SUBQ; +insulin pump
[2017-02-24 17:53] VITALS: BP 128/69; PULSE 122; RESP 22; O2SAT 98
--- NOTE | 2017-02-24 18:46 | ED.REPORT ---
HPI-General Illness Date of Service February 24, 2017 ED Provider: Selena Garner MD The patient is a 21 year old female with history of insulin dependent diabetes with multiple episodes of DKA, who presents to the emergency department complaining of elevated blood sugar levels. The patient normally uses an insulin pump but ran out of Humalog in the middle of the night. The patient was house sitting and was unable to get home to get her supplies and was unable to get to the hospital. She did not refill her pump but came to the emergency department instead. Her blood sugar was over 400 today. At this time she complains of generalized pain, nausea, and vomiting. She is concerned she may be in DKA. She denies fever, chills or diarrhea. Nursing Notes Stated Complaint: DKA Chief Complaint: General Complaint Nursing Notes Reviewed: Yes Allergies: Coded Allergies: [place] (Verified Allergy, Unknown, 02/24/17) gluten (Verified Allergy, Unknown, 02/24/17) Scheduled PRN Insulin Human Lispro (HumaLOG U100 Insulin Vial) 100 Unit/Ml Unit 1 UNIT SUBQ DIRECTED PRN PRN insulin pump As directed for insulin pump. General Time Seen by MD: 18:45 Chief Complaint Other (elevated blood sugars) Hx Obtained From: Patient, Other family... (Mother) Arrived By: Walk-in Sudden in Onset?: Yes Onset Occurred: 9 - 12 hours ago Symptom Duration: Since onset Quality: Painful Severity: Maximum: Mild Recent Healthcare: No recent hospitalization Similar Sx Previous: Yes Past Medical History Past Medical History Insulin-dependent diabetes with recurrent multiple episodes of DKA Idiopathic pancreatitis (recurrent) Solitary right kidney Irregular periods scoliosis Celiac disease Past Surgical History Direct Central line placement Reports: Cholecystectomy Smoking History Light Tobacco Smoker Social History Alcohol Use: "Social" Drug Use: Denies drug use Ambulatory Status Independent Review of Systems +elevated sugar levels Full Review of Systems Constitutional: Denies: Chills, Fever GI: Reports: Anorexia, Nausea, Vomiting, Denies: Diarrhea Musculoskeletal: Reports: Myalgia Complete sys rev & neg: except as marked. Physical Exam Vital Signs Vital Signs Date Time Temp Pulse Resp B/P Pulse Ox O2 Delivery O2 Flow Rate FiO2 02/24/17 19:48 37.1 115 25 129/32 100 Room Air 02/24/17 17:53 36.8 122 22 128/69 98 Room Air Initial VS: Reviewed, Vital signs abnormal Head / Eyes: Atraumatic, Normocephalic, PERRL Neck: Supple, Non-tender, Full range of motion Respiratory: Breath sounds normal, Clear to auscultation, No respiratory distress Lymphatic: No lymphadenopathy Extremities: Vascular intact, Neuro intact, No swelling, No tenderness Skin: Warm, Dry, No cyanosis Psychiatric: Mood/affect normal, Behavior normal, Normal thought content General/Constitutional: Cooperative ENT: Airway patent Mouth: Positive: Mucous membranes dry Cardiovascular: Regular rhythm, Heart sounds NL, No murmurs, No rubs Heart Rate / Rhythm: Positive: Tachycardia Abdomen: Soft, No rebound, BS normoactive, No distention Tenderness/Guarding/Rebound: Positive: Guarding voluntary, Tender diffuse Neurologic: Oriented X3, Speech NL GCS: 14 Interpretation & Diagnostics Lab Results Interpretation Result Diagram: 02/24/17194502/24/172104 Test 02/24/17 19:16 02/24/17 19:46 02/24/17 19:57 Hold Urine Received (Received) White Blood Count 26.4th/mm3 (3.8-10.1) Red Blood Count 4.75mil/mm3 (3.90-5.20) Hemoglobin 14.1g/dL (12.0-15.6) Hematocrit 42.8% (35.0-46.0) Mean Corpuscular Volume 90.1fL (81-100) Mean Corpuscular Hemoglobin 29.7pg (27.0-35.0) Mean Corpuscular Hemoglobin Concent 32.9% (32.0-37.0) Red Cell Distribution Width 12.8% (12.3-15.4) Platelet Count 602bil/L (150-400) Neutrophils (%) (Auto) 90.0% (40-74) Lymphocytes (%) (Auto) 5.1% (14-46) Monocytes (%) (Auto) 4.3% (4-12) Eosinophils (%) (Auto) 0% (0-5) Basophils (%) (Auto) 0.2% (0-3) Sodium Level 131mEq/L (134-144) Chloride Level 87mEq/L (97-108) Carbon Dioxide Level 5mmol/L (18-29) Blood Urea Nitrogen 30mg/dL (6-20) Creatinine 1.65mg/dL (0.57-1.00) Estimat Glomerular Filtration Rate 56mL/min (>59) Glucose Level 925mg/dL (60-99) Calcium Level 9.9mg/dL (8.5-10.1) Magnesium Level 2.5mg/dL (1.6-2.6) Total Bilirubin 0.3mg/dL (0.0-1.2) Aspartate Amino Transf (AST/SGOT) 15U/L (0-50) Alanine Aminotransferase (ALT/SGPT) 13U/L (0-32) Alkaline Phosphatase 150U/L (25-150) Total Protein 8.6g/dL (6.4-8.4) Albumin 4.8g/dL (3.4-5.0) Lipase 10U/L (13-60) Ketones Small (Negative) Urine Color Straw (YELLOW) Urine Appearance Clear (CLEAR,HAZY) Urine pH 5.5 (5.0-8.0) Urine Specific [place] 1.020 (1.003-1.035) Urine Protein Negativemg/dL (NEG,TRACE) Urine Glucose (UA) 1000mg/dL (NEGATIVE) Urine Ketones 40mg/dL (NEGATIVE) Urine Occult Blood Trace (NEGATIVE) Urine Nitrite Negative (NEGATIVE) Urine Bilirubin Negative (NEGATIVE) Urine Urobilinogen Normalmg/dL (NORMAL) Urine Leukocyte Esterase Negative (NEGATIVE) Urine RBC 0-2/hpf (0-2) Urine WBC 0-5/hpf (0-5) Urine Epithelial Cells None/hpf (NONE-MOD) Urine Crystals None seen (NONE SEEN) Urine Bacteria Few/hpf (NONE-FEW) Urine Hyaline Casts None/lpf (NONE) Urine Granular Casts None seen (NONE SEEN) Urine Waxy Casts None seen (NONE SEEN) Urine Red Blood Cell Casts None seen (NONE SEEN) Urine White Blood Cell Casts None seen (NONE SEEN) Urine Mucus None seen (None Seen) Urine Trichomonas None seen (NONE SEEN) Urine Yeast None (NONE SEEN) Urinalysis Comment None Urine Culture Reflexed Not indicated ECG Interpretation ECG Interpretation: Sinus tachycardia with a rate of 119 Time: 21:38 Interpreted by: ED physician Re-Eval/Medical Decision Med Decision/Clinical Course The patient presents with hyperglycemia and is in DKA. She has hyperkalemia with some minor EKG changes. The patient was admitted to ICU. Source of Hx: Old records, Parent Time of Eval: 20:00 Re-Evaluation/Progress Note: Discussed plan for admission. Consultation : Referral / Consult Name: Keisha Albrecht DO Consulted With: Hospitalist Call Returned at: 20:17 Plodding Operator: Will see patient, Agrees with eval, Agrees with plan, Accepts admit Counseled Regarding: Diagnosis, Lab results, Need for admission Discharge & Departure Primary Impression: DKA, type 1 Diabetes mellitus complication detail: without coma Qualified Code: E10.10 - Type 1 diabetes mellitus with ketoacidosis without coma Disposition: ADMITTED TO HOSPITAL Discharge Condition All VS Reviewed: Yes Condition: Stable Referrals: Rosalba Han PA-C (PCP) Crit Care Except Billable Proc Time Spent: 30-74 minutes Services Performed: Patient management by me, Time spent at bedside, Reviewing test results, Discussing patient care Scribe Attestation Portions of this note were transcribed by Arlen Stone. I, Dr. Garner personally performed the history, physical exam and medical decision-making; I reviewed and confirmed the accuracy of the information in the transcribed note. Signed by: Marleni Perez, 02/24/2017 at 2230. copies to: Rosalba Han PA-C, Jena M MD February 24, 2017 18:46 Arlen Stone February 24, 2017 18:54
[2017-02-24] MEDS ORDERED: 0.9% Sodium Chloride 1,000 ML IV ONE ×3 (18:50→22:15)
[2017-02-24 19:48] VITALS: BP 129/32; PULSE 115; RESP 25; O2SAT 100
--- NOTE | 2017-02-24 19:56 | ABG ---
DateTimeAnalyzed 19:53:00 -_ pH ____6.987 - pCO2 ___26.7__ -mmHg pO2 ___47.3__ -mmHg HCO3- ____6.1__ -mmol/L ABE __-25.4__ -mmol/L tHb ___14.1__ -g/dL O2Hb ___67.3__ -% COHb ____1.0__ -% MetHb ____1.2__ -% sO2 ___68.8__ -% FIO2 ___21.0__ -% Drawn By RN - Date/Time Notified____ 19:56:00 -_ Notified By MD - Notified Whom _DR GORDY - B 762 -mmHg tO2 ___13.3__ -Vol% OrderingPhysicianInitials JL - Kevyn test N/A -
[2017-02-24] MEDS ORDERED: HYDROmorphone 0.5 mg/0.5 mL iSecure Syringe IVPUSH ONE (20:00)
[2017-02-24 20:02] LABS: BASOPHILS % (AUTO) 0.2 % (0-3); EOSINOPHILS % (AUTO) 0 % (0-5); MONOCYTES % (AUTO) 4.3 % (4-12); Mean Corpuscular Hemoglobin 29.7 pg (27.0-35.0); Mean Corpuscular Volume 90.1 fL (81-100); Platelet Count 602 bil/L (150-400)
[2017-02-24] MEDS: Ondansetron 2 mg/mL 2 mL Inj IVPUSH PRN (20:28)
[2017-02-24 20:31] LABS: Lipase 10 U/L (13-60); Magnesium 2.5 mg/dL (1.6-2.6)
[2017-02-24] MEDS ORDERED: Sodium Bicarb (50 mEq) 8.4% 1 mEq/mL 50 mL Syringe IVPUSH ONE (20:50)
[2017-02-24] MEDS ORDERED: Insulin Human REGular-Omnicell 100 Unit/mL SUBQ ONE (20:50)
[2017-02-24 20:52] LABS: APPEARANCE,URINE CLEAR (CLEAR,HAZY); COLOR,URINE STRAW (YELLOW); OCCULT BLOOD,URINE TRACE (NEGATIVE); PH,URINE 5.5 (5.0-8.0); UROBILINOGEN,URINE NORMAL (NORMAL)
[2017-02-24] MEDS ORDERED: Insulin Human REGular-Omnicell 100 Unit/mL IV ONE (20:55)
[2017-02-24] MEDS ORDERED: D5W1/2NS 1,000 mL IV PRN (20:55)
[2017-02-24] MEDS ORDERED: Alum-Mag Hydrox-Simeth 30 mL Suspension PO PRN (21:10)
[2017-02-24] MEDS ORDERED: Polyethylene Glycol (PEG) 17 Gm Powder PO PRN (21:10)
[2017-02-24] MEDS ORDERED: Senna-Docusate 8.6-50 mg Tablet PO PRN (21:10)
[2017-02-24] MEDS ORDERED: Ondansetron 2 mg/mL 2 mL Inj IVPUSH PRN (21:10)
[2017-02-24] MEDS: Insulin Human REGular 100 Units/100 mL NS IV SCH ×2 (21:52)
--- NOTE | 2017-02-24 21:54 | PCM.HPMED ---
Subjective Date of Service February 24, 2017 Primary Provider: Admitting Physician: Keisha Albrecht DO Primary Care Physician: Rosalba Han PA-C Attending Physician: Keisha Albrecht DO Admit Status: From the Emergency Department Chief Complaint: abdominal pain, ran out of insulin History of Present Illness: Ms. Alatorre is a 21yoF with past medical history of diabetes type 1, multiple episodes of DKA, solitary right kidney, celiacs disease admitted with DKA. Patient unable to put insulin pump together. Patient is somnolent on admission however she is able to state that prior to admission she was unable to get the parts to put her insulin pump together leading to inability to receive insulin. She came to the ED with nausea, vomiting and abdominal pain. Last BG check was estimated to be in the 400s however pt is having difficulties recalling this number. At this time she endorses nausea and abdominal discomfort but denies recent fever, chills, lightheadedness, dizziness, changes in bowel movements or urination. On presentation HR 122, RR 22, BP 128/69, 89% on RA, WBC 26.4, sodium 131, potassium 7.7, CO2 5, creatinine 1.65, glucose 925, gap 38. Review of Systems: complete review of systems obtained. positive as per hpi otherwise negative. Allergies Coded Allergies: Palmer (Verified Allergy, Unknown, 02/24/17) gluten (Verified Allergy, Unknown, 02/24/17) Home Medications Patient was discharged on 02/15 with lispro for insulin pump PMH Insulin-dependent diabetes with recurrent multiple episodes of DKA Idiopathic pancreatitis (recurrent) Solitary right kidney Celiac's disease Irregular periods scoliosis Celiac disease. Diabetes mellitus Family History Mother with hypertension Cousin with type 1 diabetes Social History Hx Alcohol Use: No Hx Substance Use: No Hx Tobacco Use: No Smoking Status: Light Tobacco Smoker Exam Vital Signs Vital Sign - Last Date Time Temp Pulse Resp B/P Pulse Ox O2 Delivery O2 Flow Rate FiO2 02/24/17 19:48 37.1 115 25 129/32 100 Room Air Exam General: somnolent, Cooperative, No acute Distress Eyes: PERRLA, Scleral Anicteric Mouth: Mouth Normal, Mucous Membranes dry/[place] Neck: Supple, no Thyromegaly, trachea central. Chest & Lungs: CTA bilateral, no rhonchi, wheeze, rales Cardiovascular: Normal S1, Normal S2, No Murmurs/Rubs/Gallops, tachy/Rhythm, Murmur, Other (No JVD, no peripheral edema) Pulses: Radial (present and equal), Dorsalis Pedi (present and equal) Abdomen: Soft, Non-tender, Non-distended, Normoactive bowel tones. Musculoskeletal: Unremarkable. Normal range of motion, no swollen or erythematous joints Extremities: no edema or erythematous change Skin: No rashes. Warm and dry, Neurological: grossly intact, normal strength, sensation intact Lymphatic: Lymph nodes Cervical and Axillary not palpable Lab and Diagnostics Result Diagram: 02/24/17194502/24/171945 Additional Diagnostics: Located Within [facility] RUTHIE ALATORRE Otis 1995 Female DateTimeAnalyzed 19:53:00 -_ pH ____6.987 - pCO2 ___26.7__ -mmHg pO2 ___47.3__ -mmHg HCO3- ____6.1__ -mmol/L ABE __-25.4__ -mmol/L tHb ___14.1__ -g/dL O2Hb ___67.3__ -% COHb ____1.0__ -% MetHb ____1.2__ -% sO2 ___68.8__ -% FIO2 ___21.0__ -% Drawn By RN - Date/Time Notified____ 19:56:00 -_ Notified By MD - Notified Whom _DR GORDY - B 762 -mmHg tO2 ___13.3__ -Vol% OrderingPhysicianInitials JL - Kevyn test N/A - Assessment & Plan 21yoF with past medical history of pancreatitis, diabetes type 1, medical non- compliance with multiple admission for DKA admitted for DKA. Patient unable to obtain insulin pump part. Diabetic ketoacidosis.Acute on chronic. present on admission. Ongoing - Secondary to medication noncompliance - No s/s of infection, trop ordered but expected to be negative, non-specific EKG changes lateral leads - Received 3L in ED, insulin and bicarb - glucose 925, gap 39 - Continue aggressive IVF - DKA IV protocol initiated - CMP q2 hour until potassium normalized then q4HR until DKA resolves Hyperkalemia. Severe. Acute. Present on admission. Ongoing - On admission potassium 7.3, repeat level 7.3 - EKG - Calcium gluconate - BMP q2HR as above Hyponatremia, acute, POA -component of pseudohyponatremia given BG 925 -corrected 144 -treat DKA as above YANI in the setting of solitary kidney. Present on admission. Ongoing - pre-renal, aggressive fluid replenishment - avoid nephrotoxic medications Type I diabetes. Chronic. Present on admission. Ongoing - DKA IV protocol as above Nausea and vomiting. Acute. Present on admission. Ongoing - symptomatic management Leukocytosis. Acute. Present on admission. Ongoing - Most likely secondary to stress response - Continue to monitor for infection - Repeat CBC with am labs Patient Status: Patient was admitted under inpatient status with expected length of stay greater than two midnights due to severity of presenting symptoms , risk of adverse event, and complexity of treatment plan. Pain Evaluation: Adequate Pain Control Pain Evaluation: Adequate Pain Control GI Prophylaxis: Not indicated VTE Prophylaxis: Sub-Q Heparin (Unfractionated) Resuscitation Status: CPR: Attempt Resuscitation Keisha Albrecht DO February 24, 2017 21:54 Keisha Albrecht DO February 24, 2017 21:54
[2017-02-24 22:01] VITALS: BP 124/47; PULSE 135; RESP 23; O2SAT 100
[2017-02-24 23:18] VITALS: BP 111/49; PULSE 135; RESP 25; O2SAT 100
--- NOTE | 2017-02-24 23:21 | NUR ---
ED IV 500ml NS infusion initiated at 2220 and terminated at 2320, 500ml NS infused total
[2017-02-24] MEDS: Heparin 5,000 Unit/mL Inj SUBQ SCH (23:28)
[2017-02-25] VITALS (7 sets, daily range): BP systolic 93–103; BP diastolic 41–51; PULSE 103–124; RESP 17–27; O2SAT 99–100
--- NOTE | 2017-02-25 | NUR ---
admit note pt to floor around 2300 able to move over to CCU bed, pt c/o being very cold and a little nausea with movement. tele ST rate 130s MD aware EKG obtained. pt with insulin gtt running at 0.2units/kg/hr (kg=65.8 per bed scale), pt also has NS at wide open, BG greater then 500 lab in to obtain labs, pt on RA increased RR, pt states her mouth is very dry ice chips given, pt with intermittent back pain, orientated to bed, room and call light, see DKA flowsheet.
[2017-02-25 00:22] LABS: TROPONIN T 0.01 ug/L (0.0-0.011)
[2017-02-25] MEDS: 0.9% Sodium Chloride 1,000 ML IV SCH ×4 (00:31→14:31)
[2017-02-25] MEDS: Ondansetron 2 mg/mL 2 mL Inj IVPUSH PRN (01:53)
[2017-02-25] MEDS: Heparin 5,000 Unit/mL Inj SUBQ SCH ×3 (05:54→20:44)
[2017-02-25] MEDS: Insulin Human REGular 100 Units/100 mL NS IV SCH ×2 (06:03)
--- NOTE | 2017-02-25 06:26 | NUR ---
BG/tele/potassium pt BG 147 at 0600 insulin gtt running at 0.05units/kg/hr and D10 started at 65.8cc/hr NS still running at 200cc/hr, pt denies any nausea at this time, tolerating ice chips, tele ST 110s down from 130s, potassium down t 4.2 anion gap at 24 next BMP at 0730. pt resting at this time
[2017-02-25 07:49] LABS: BASOPHILS % (AUTO) 0.2 % (0-3); EOSINOPHILS % (AUTO) 0.1 % (0-5); MONOCYTES % (AUTO) 2.2 % (4-12); Mean Corpuscular Hemoglobin 29.8 pg (27.0-35.0); Mean Corpuscular Volume 86.2 fL (81-100); NEUTROPHILS % (AUTO) 76.2 % (40-74); Platelet Count 380 bil/L (150-400)
[2017-02-25] MEDS ORDERED: Lactated Ringer's 1,000 ML IV ONE ×2 (10:20)
[2017-02-25] MEDS ORDERED: Insulin GLARgine 100 Unit/mL Syringe SUBQ ONE (16:45)
[2017-02-25] MEDS ORDERED: Insulin LISPRO 300 Unit/3 mL Inj SUBQ SCH (17:30)
[2017-02-25] MEDS ORDERED: Insulin Human REGular Inj 100 UNIT in 0.9% Sodium Chloride-Pha MIX 100 ML IV SCH (18:00)
[2017-02-25] MEDS ORDERED: Dextrose 10% 1,000 ML IV PRN (18:00)
[2017-02-25] MEDS: Lactated Ringer's 1,000 ML IV SCH (18:44)
--- NOTE | 2017-02-25 19:26 | NUR ---
TRANSFER TO PCC Patient transitioned off DKA protocol, as anion gap closed with value of 13 this afternoon. Plan to start subcutaneous insulin coverage, but she was unable to eat more than a single serving of applesauce, states she's not that hungry, and just wants to sleep. Because she cannot maintain adequate glucose intake to allow for safe subcutaneous insulin coverage, non-DKA insulin gtt started, until able to take in adequate nutrition. Labs and vitals stable, so orders received for patient to downgrade to PCC without tele. Will continue to monitor blood glucose levels and vitals.
--- NOTE | 2017-02-25 20:25 | PCM.PNMED ---
Subjective Date of Service February 25, 2017 Subjective Patient is a 21 y/o female with history of diabetes type 1, multiple episodes of DKA, solitary right kidney, and celiacs disease admitted with DKA. Hospital day #1. Admitted to CCU and DKA protocol initiated. No acute events overnight. Patient reports mild back pain and nausea this morning but is otherwise without complaint. Exam Vital Signs Vital Sign - Last Date Time Temp Pulse Resp B/P Pulse Ox O2 Delivery O2 Flow Rate FiO2 02/25/17 04:00 37.2 123 22 95/41 99 Room Air Intake and Output 02/24/17 02/24/17 02/25/17 Cumulative From/Thru 15:00 23:00 07:00 02/24/17 17:53 - 02/25/17 06:25 Intake Total 2000 ml 2364 ml 4364 ml Output Total 800 ml 800 ml Balance 2000 ml 1564 ml 3564 ml Intake IV Total 2000 ml 2364 ml 4364 ml Output Urine Total 800 ml 800 ml Exam General: Patient laying in hospital bed, somewhat somnolent, minimally interactive, in no acute distress. HEENT: Normocephalic, atraumatic. Pupils equal, round, and reactive to light and accommodation. Anicteric sclerae, moist mucosa. Cardiovascular: Regular rate and rhythm with no murmurs, rubs, or gallops appreciated Pulmonary: Clear to auscultation bilaterally with no crackles, wheezes, or rhonchi. Normal respiratory effort with no use of accessory muscles. Abdomen: Bowel tones present. Soft, nontender, nondistended. No hepatosplenomegaly or masses appreciated. Extremities: No clubbing, cyanosis, edema appreciated Skin: Normal temperature, turgor, and texture Neurological: Cranial nerves grossly intact Psychiatric: Somnolent affect, able to converse appropriately though mildly confused. IVs and Medications Medications Reviewed: Medications were reviewed in detail Lab and Diagnostics Laboratory Tests Test 02/24/17 21:05 02/24/17 23:30 02/25/17 03:25 02/25/17 07:40 Potassium Level 7.3mEq/L (3.5-5.2) 5.4mEq/L (3.5-5.2) 4.2mEq/L (3.5-5.2) 4.0mEq/L (3.5-5.2) Sodium Level 142mEq/L (134-144) 142mEq/L (134-144) 142mEq/L (134-144) Chloride Level 103mEq/L (97-108) 109mEq/L (97-108) 113mEq/L (97-108) Carbon Dioxide Level 3mmol/L (18-29) 9mmol/L (18-29) 10mmol/L (18-29) Blood Urea Nitrogen 30mg/dL (6-20) 24mg/dL (6-20) 19mg/dL (6-20) Creatinine 1.49mg/dL (0.57-1.00) 1.51mg/dL (0.57-1.00) 1.21mg/dL (0.57-1.00) Estimat Glomerular Filtration Rate 63mL/min (>59) 62mL/min (>59) 80mL/min (>59) Glucose Level 579mg/dL (60-99) 222mg/dL (60-99) 170mg/dL (60-99) Calcium Level 7.9mg/dL (8.5-10.1) 8.5mg/dL (8.5-10.1) 8.2mg/dL (8.5-10.1) Troponin T 0.010ug/L (0.0-0.011) White Blood Count 18.5th/mm3 (3.8-10.1) Red Blood Count 3.83mil/mm3 (3.90-5.20) Hemoglobin 11.4g/dL (12.0-15.6) Hematocrit 33.0% (35.0-46.0) Mean Corpuscular Volume 86.2fL (81-100) Mean Corpuscular Hemoglobin 29.8pg (27.0-35.0) Mean Corpuscular Hemoglobin Concent 34.5% (32.0-37.0) Red Cell Distribution Width 12.6% (12.3-15.4) Platelet Count 380bil/L (150-400) Neutrophils (%) (Auto) 76.2% (40-74) Lymphocytes (%) (Auto) 21.0% (14-46) Monocytes (%) (Auto) 2.2% (4-12) Eosinophils (%) (Auto) 0.1% (0-5) Basophils (%) (Auto) 0.2% (0-3) Test 02/25/17 11:50 02/25/17 15:35 Sodium Level 140mEq/L (134-144) 136mEq/L (134-144) Potassium Level 5.0mEq/L (3.5-5.2) 3.7mEq/L (3.5-5.2) Chloride Level 114mEq/L (97-108) 110mEq/L (97-108) Carbon Dioxide Level 12mmol/L (18-29) 13mmol/L (18-29) Blood Urea Nitrogen 17mg/dL (6-20) 14mg/dL (6-20) Creatinine 1.06mg/dL (0.57-1.00) 1.09mg/dL (0.57-1.00) Estimat Glomerular Filtration Rate 94mL/min (>59) 91mL/min (>59) Glucose Level 117mg/dL (60-99) 117mg/dL (60-99) Calcium Level 7.9mg/dL (8.5-10.1) 8.0mg/dL (8.5-10.1) Result Diagram: 02/25/17 0740 02/25/17 0325 Additional Diagnostics [facility] RUTHIE ALATORRE 1995 Female DateTimeAnalyzed 19:53:00 -_ pH ____6.987 - pCO2 ___26.7__ -mmHg pO2 ___47.3__ -mmHg HCO3- ____6.1__ -mmol/L ABE __-25.4__ -mmol/L tHb ___14.1__ -g/dL O2Hb ___67.3__ -% COHb ____1.0__ -% MetHb ____1.2__ -% sO2 ___68.8__ -% FIO2 ___21.0__ -% Drawn By RN - Date/Time Notified____ 19:56:00 -_ Notified By MD - Notified Whom _DR GORDY - B 762 -mmHg tO2 ___13.3__ -Vol% OrderingPhysicianInitials JL - Kevyn test N/A - Assessment & Plan 21 y/o female with past medical history of pancreatitis, diabetes type 1, medical non-compliance with multiple admission for DKA, solitary right kidney, celiacs disease admitted with DKA. Patient unable to put insulin pump together. Hospital day #1. 1. Diabetic ketoacidosis. Acute on chronic. present on admission. Ongoing - Secondary to medication noncompliance, no signs/symptoms of infection. - Received 3L in ED, insulin as well as bicarb and admitted to CCU on DKA protocol. - Anion gap down to 21 from 39 on admission. - Bolus 2L LR then switch to maintenance IVFs at 200mls/hr. - Continue to monitor CMP q4h - Transition to subcutaneous insulin as gap closes. 2. Hyperkalemia. Severe. Acute. Present on admission. Improved. - On admission potassium 7.3. Trending down. - Continue IVFs, insulin and CMP monitoring as above. 3. Mild hyponatremia, acute. present on admission. Resolved. - Pseudohyponatremia secondary to DKA - Continue DKA treatment as above. 4. Acute renal failure in setting of solitary kidney, present on admission. Ongoing - Continue IV fluids as above. - Follow CMP 5. Type I diabetes. Chronic. Present on admission. Ongoing - DKA IV protocol as in #1 - Patient's family to bring in insulin pump and resume prior to discharge. 6. Nausea and vomiting. Acute. Present on admission. Ongoing - Secondary to #1 - Zofran prn 7. Leukocytosis. Acute. Present on admission. Improved. - Most likely secondary to stress response. No signs/symptoms of infection. - Follow CBC, monitor clinically PRN: Acetaminophen-fever/headache/mild/moderate pain Antiemetics, as needed Bowel regimen, as needed. Disposition: Patient will likely discharge in 1-2 days pending resolution of DKA and home insulin therapy. GI Prophylaxis: Not indicated VTE Prophylaxis: Sub-Q Heparin (Unfractionated) Resuscitation Status: CPR: Attempt Resuscitation Attending Statement The patient was seen and examined together with Dr. Moran on 02/25/2017 and I agree with the history, exam and plan as outlined in the note above. . Alice Moran DO February 25, 2017 07:55 Jarrod Liao MD February 27, 2017 18:35
[2017-02-25] MEDS ORDERED: HYDROcodone-APAP 5-325 mg Tablet PO PRN (20:30)
[2017-02-26 00:23] VITALS: BP 101/51; PULSE 96; RESP 18; O2SAT 97
[2017-02-26] MEDS: Lactated Ringer's 1,000 ML IV SCH ×3 (00:31→08:13)
[2017-02-26 03:33] LABS: BASOPHILS % (AUTO) 0.2 % (0-3); EOSINOPHILS % (AUTO) 0.4 % (0-5); MONOCYTES % (AUTO) 4.9 % (4-12); Mean Corpuscular Hemoglobin 29.2 pg (27.0-35.0); Mean Corpuscular Volume 85.8 fL (81-100); NEUTROPHILS % (AUTO) 51.9 % (40-74); Platelet Count 301 bil/L (150-400)
[2017-02-26] MEDS: Heparin 5,000 Unit/mL Inj SUBQ SCH ×2 (04:51→13:11)
--- NOTE | 2017-02-26 05:36 | NUR ---
Insulin gtt / Abdominal pain Pt on 0.5-0.8 units/hr this HS on insulin gtt with BGs primarily 100s-120s; Q2H BG checks throughout night. This AM, BG spiked to 193; dose increased to 3 units/hr and Q1H checks re-initiated. Pt sleeping throughout shift. C/o burning 5/10 abdominal pain at HS; MD informed, lipase obtained r/t past history of idiopathic pancreatitis, orders for vicodin given for pain control. 1 tab administered at HS, pt reports pain relief from 5/10 to 4/10; no further requests for pain medication. Pt states pain has resolved throughout night. VSS, BPs 90s-100s SBP; aware, LR infusing at 200ml/hr. Tele SR 80s-90s.
[2017-02-26 08:30] VITALS: BP 104/66; PULSE 89; RESP 16; O2SAT 100
[2017-02-26 11:12] VITALS: PULSE 90
[2017-02-26 12:00] VITALS: BP 112/77; PULSE 87; RESP 20; O2SAT 98
--- NOTE | 2017-02-26 13:20 | PCM.PNMED ---
Subjective Date of Service February 26, 2017 Subjective Patient is a 21 y/o female with history of diabetes type 1, multiple episodes of DKA, solitary right kidney, and celiacs disease admitted with DKA. Hospital day #2. No acute events overnight. Diet advanced yesterday but patient did not tolerate as she did not feel like eating. She was started on a non-DKA insulin drip and LR continued at 200mls/hr. She reported an increase in epigastric abdominal pain and repeat lipase ordered which was wnl. Today patient states that she is feeling much better and feels ready to eat. She denies abdominal pain, nausea or vomiting. Exam Vital Signs Vital Sign - Last Date Time Temp Pulse Resp B/P Pulse Ox O2 Delivery O2 Flow Rate FiO2 02/26/17 00:23 36.6 96 18 101/51 97 Room Air Intake and Output 02/25/17 02/25/17 02/26/17 Cumulative From/Thru 15:00 23:00 07:00 02/24/17 17:53 - 02/26/17 06:55 Intake Total 5643 ml 2908 ml 10641 ml Output Total 900 ml 700 ml 2400 ml Balance 4743 ml 2208 ml 32340 ml Intake Oral 150 ml 150 ml IV Total 5493 ml 2908 ml 26812 ml Output Urine Total 900 ml 700 ml 2400 ml Exam General: well developed, well nourished young female, in no acute distress. HEENT: Normocephalic, atraumatic. Pupils equal, round, and reactive to light and accommodation. Anicteric sclerae, moist mucosa. Cardiovascular: Regular rate and rhythm with no murmurs, rubs, or gallops appreciated Pulmonary: Clear to auscultation bilaterally with no crackles, wheezes, or rhonchi. Normal respiratory effort with no use of accessory muscles. Abdomen: Bowel tones present. Soft, nontender, nondistended. No hepatosplenomegaly or masses appreciated. Extremities: No clubbing, cyanosis, edema appreciated Skin: Normal temperature, turgor, and texture Neurological: Cranial nerves grossly intact Psychiatric: Normal mood and affect, alert and oriented x3. IVs and Medications Medications Reviewed: Medications were reviewed in detail Lab and Diagnostics Laboratory Tests Test 02/25/17 15:35 02/25/17 21:10 02/26/17 03:05 Sodium Level 136mEq/L (134-144) 135mEq/L (134-144) 139mEq/L (134-144) Potassium Level 3.7mEq/L (3.5-5.2) 3.9mEq/L (3.5-5.2) 3.6mEq/L (3.5-5.2) Chloride Level 110mEq/L (97-108) 109mEq/L (97-108) 111mEq/L (97-108) Carbon Dioxide Level 13mmol/L (18-29) 11mmol/L (18-29) 16mmol/L (18-29) Blood Urea Nitrogen 14mg/dL (6-20) 11mg/dL (6-20) 8mg/dL (6-20) Creatinine 1.09mg/dL (0.57-1.00) 0.95mg/dL (0.57-1.00) 0.93mg/dL (0.57-1.00) Estimat Glomerular Filtration Rate 91mL/min (>59) 106mL/min (>59) 109mL/min (>59) Glucose Level 117mg/dL (60-99) 137mg/dL (60-99) 148mg/dL (60-99) Calcium Level 8.0mg/dL (8.5-10.1) 7.9mg/dL (8.5-10.1) 7.8mg/dL (8.5-10.1) Lipase 14U/L (13-60) 12U/L (13-60) White Blood Count 11.3th/mm3 (3.8-10.1) Red Blood Count 3.67mil/mm3 (3.90-5.20) Hemoglobin 10.7g/dL (12.0-15.6) Hematocrit 31.5% (35.0-46.0) Mean Corpuscular Volume 85.8fL (81-100) Mean Corpuscular Hemoglobin 29.2pg (27.0-35.0) Mean Corpuscular Hemoglobin Concent 34.0% (32.0-37.0) Red Cell Distribution Width 13.2% (12.3-15.4) Platelet Count 301bil/L (150-400) Neutrophils (%) (Auto) 51.9% (40-74) Lymphocytes (%) (Auto) 42.3% (14-46) Monocytes (%) (Auto) 4.9% (4-12) Eosinophils (%) (Auto) 0.4% (0-5) Basophils (%) (Auto) 0.2% (0-3) Total Bilirubin 0.5mg/dL (0.0-1.2) Aspartate Amino Transf (AST/SGOT) 12U/L (0-50) Alanine Aminotransferase (ALT/SGPT) 7U/L (0-32) Alkaline Phosphatase 62U/L (25-150) Total Protein 4.6g/dL (6.4-8.4) Albumin 2.6g/dL (3.4-5.0) Result Diagram: 02/26/1730402/26/17 030 Additional Diagnostics [facility] RUTHIE ALATORRE Otis 1995 Female DateTimeAnalyzed 19:53:00 -_ pH ____6.987 - pCO2 ___26.7__ -mmHg pO2 ___47.3__ -mmHg HCO3- ____6.1__ -mmol/L ABE __-25.4__ -mmol/L tHb ___14.1__ -g/dL O2Hb ___67.3__ -% COHb ____1.0__ -% MetHb ____1.2__ -% sO2 ___68.8__ -% FIO2 ___21.0__ -% Drawn By RN - Date/Time Notified____ 19:56:00 -_ Notified By MD - Notified Whom _DR GORDY - B 762 -mmHg tO2 ___13.3__ -Vol% OrderingPhysicianInitials JL - Kevyn test N/A - Assessment & Plan 21 y/o female with past medical history of pancreatitis, diabetes type 1, medical non-compliance with multiple admission for DKA, solitary right kidney, celiacs disease admitted with DKA. Patient unable to put insulin pump together. Hospital day #2. 1. Diabetic ketoacidosis. Acute on chronic. present on admission. Resolved - Secondary to medication noncompliance, no signs/symptoms of infection. - Received 3L in ED, insulin as well as bicarb and admitted to CCU on DKA protocol. - Anion gap closed - Transition to subcutaneous insulin - Advance diet as tolerated - Patient's family to bring in insulin pump from home for setup. - Continue to monitor CMP 2. Hyperkalemia. Severe. Acute. Present on admission.Resolved. - On admission potassium 7.3. Trended down. - Stop IV fluids, transition to subcutaneous insulin and CMP monitoring as above. 3. Mild hyponatremia, acute. present on admission. Resolved. - Pseudohyponatremia secondary to DKA 4. Acute renal failure in setting of solitary kidney, present on admission. Resolved - Follow CMP 5. Type I diabetes. Chronic. Present on admission. Ongoing - DKA IV protocol as in #1 - Patient's family to bring in insulin pump and resume prior to discharge. 6. Nausea and vomiting. Acute. Present on admission. Resolved. - Secondary to #1 - Zofran prn 7. Leukocytosis. Acute. Present on admission. Resolved - Most likely secondary to stress response. No signs/symptoms of infection. - Follow CBC, monitor clinically PRN: Acetaminophen-fever/headache/mild/moderate pain Antiemetics, as needed Bowel regimen, as needed. Disposition: Patient will likely discharge today or tomorrow pending further monitoring today as her diet advances and she is transitioned to subcutaneous insulin. Pain Evaluation: Adequate Pain Control GI Prophylaxis: Not indicated VTE Prophylaxis: Sub-Q Heparin (Unfractionated) Resuscitation Status: CPR: Attempt Resuscitation Attending Statement The patient was seen and examined together with Dr. Moran on 02/26/2017 and I agree with the history, exam and plan as outlined in the note above. . Alice Moran DO February 26, 2017 09:22 Jarrod Liao MD February 27, 2017 18:34
[2017-02-26] MEDS ORDERED: Glucose 40% Oral Gel 15 Gm Tube PO PRN (14:45)
[2017-02-26] MEDS ORDERED: Insulin GLARgine 100 Unit/mL Syringe SUBQ ONE ×2 (14:45→16:20)
--- NOTE | 2017-02-26 15:59 | NUR ---
Social Work Note: Screen Note/Readiness for Discharge Data& Assessment: Per MD pt is getting medically closer to being ready for discharge. India Penaloza is a 21 year old female admitted on 02/24/2017 for DKA. Pt has [employer] and [facility] [employer] insurance coverage. Pt sees Rosalba MARTE for primary care. Pt lives with her mom in [place] and is independent at baseline. SW met with pt at bedside to confirm discharge plan and assess for any unmet needs. Pt mother is bringing her insulin pump to ensure it is in working order with anticipated discharge later tonight. Pt denies any other needs. No other discharge needs identified. Plan: Anticipated discharge home via POV when medically ready. Pt denies any other needs. No other discharge needs identified. ILEANA Petersen
--- NOTE | 2017-02-26 16:29 | PCM.DIMED ---
Alice Moran DO 02/25/17 1203: Discharge Instructions Date of Service February 25, 2017 Dates of Hospitalization February 24, 2017 at 21:00 Discharge Diagnosis Discharge Diagnosis 1. Diabetic ketoacidosis 2. Severe Hyperkalemia 3. Mild hyponatremia 4. Acute renal failure in setting of solitary kidney 5. Type I diabetes. 6. Leukocytosis Diet Diabetic Activity No restrictions Call your provider Fever or Chills, Shortness of breath, Chest pain, Vomitting, Excessive diarrhea Patient Instructions It is important that you follow up with Dr. Early from Endocrinology this Friday, February 28. Follow up with Primary Care Physician in 1-2 weeks to review hospital stay and diabetes management. Follow-up Provider: Jacinto Early MD Follow-up with PCP in: Other (February 28, 2017 at 9:20am. ) Provider: Rosalba Han PA-C Follow-up in: 2 weeks Jarrod Liao MD 02/27/17 1835: Discharge Instructions Attending's Statement The patient was seen and examined together with Dr. Moran on 02/26/2017 and I agree with the history, exam and plan as outlined in the note above. . Alice Moran DO February 25, 2017 12:03 Jarrod Liao MD February 27, 2017 18:35
--- NOTE | 2017-02-26 16:42 | PCM.DC.MED ---
Discharge Summary Date of Service February 26, 2017 Dates of Hospitalization Date of Hospital Admission February 24, 2017 at 21:00 Date of Discharge: February 26, 2017 Providers: Admitting Physician: Keisha Albrecht DO Primary Care Physician: Rosalba Han PA-C Attending Physician: Keisha Albrecht DO Diagnosis at Time of Discharge Diagnosis at Time of Discharge 1. Diabetic ketoacidosis 2. Severe Hyperkalemia 3. Mild hyponatremia 4. Acute renal failure in setting of solitary kidney 5. Type I diabetes. 6. Leukocytosis Procedures Other Diagnostics [facility] RUTHIE PENALOZA 1995 Female DateTimeAnalyzed 19:53:00 -_ pH ____6.987 - pCO2 ___26.7__ -mmHg pO2 ___47.3__ -mmHg HCO3- ____6.1__ -mmol/L ABE __-25.4__ -mmol/L tHb ___14.1__ -g/dL O2Hb ___67.3__ -% COHb ____1.0__ -% MetHb ____1.2__ -% sO2 ___68.8__ -% FIO2 ___21.0__ -% Drawn By RN - Date/Time Notified____ 19:56:00 -_ Notified By MD - Notified Whom _DR GORDY - B 762 -mmHg tO2 ___13.3__ -Vol% OrderingPhysicianInitials JL - Kevyn test N/A - Brief History Per admission history and physical on 02/24/2017. Dr. Keisha Albrecht. Ms. Penaloza is a 21yoF with past medical history of diabetes type 1, multiple episodes of DKA, solitary right kidney, celiacs disease admitted with DKA. Patient unable to put insulin pump together. Patient is somnolent on admission however she is able to state that prior to admission she was unable to get the parts to put her insulin pump together leading to inability to receive insulin. She came to the ED with nausea, vomiting and abdominal pain. Last BG check was estimated to be in the 400s however pt is having difficulties recalling this number. At this time she endorses nausea and abdominal discomfort but denies recent fever, chills, lightheadedness, dizziness, changes in bowel movements or urination. On presentation HR 122, RR 22, BP 128/69, 89% on RA, WBC 26.4, sodium 131, potassium 7.7, CO2 5, creatinine 1.65, glucose 925, gap 38. Hospital Course 21 y/o female with past medical history of pancreatitis, diabetes type 1, medical non-compliance with multiple admission for DKA, solitary right kidney, and celiacs disease admitted with DKA. Patient unable to put insulin pump together. 1. Diabetic ketoacidosis. Acute on chronic. present on admission. Resolved - Secondary to medication noncompliance, no signs/symptoms of infection. - Received 3L in ED, insulin, and bicarb. Admitted to CCU on DKA protocol. - On admission glucose was 925 and anion gap 39 - BMP was monitored q2h until potassium, then q4HR until DKA resolved - Patient was transitioned to subcutaneous insulin and diet advanced as tolerated - Home insulin pump brought in by patient's mother on day of discharge. - Follow up arranged with Dr. Early on February 28. 2. Hyperkalemia. Severe. Acute. Present on admission.Resolved. - On admission potassium 7.3 and trended down as DKA resolved. - BMP q2HR as above 3. Mild hyponatremia, acute. present on admission. Resolved. - Pseudohyponatremia secondary to DKA - BMP q2HR as above 4. Acute renal failure in setting of solitary kidney, present on admission. Resolved - Pre-renal and resolved with IV fluids - Followed CMP 5. Type I diabetes. Chronic. Present on admission. Uncontrolled - Initiated DKA protocol on admission with transition to subcutaneous insulin with resolution of DKA - Insulin pump resumed prior to discharge. - Endocrinology follow up, as above with Dr. Early 6. Nausea and vomiting. Acute. Present on admission. Resolved. - Secondary to DKA - Patient received Zofran prn 7. Leukocytosis. Acute. Present on admission. Resolved - Most likely secondary to stress response. No signs/symptoms of infection. - Followed CBC and monitored clinically. Exam Vital Signs (Last) Date Time Temp Pulse Resp B/P Pulse Ox O2 Delivery O2 Flow Rate FiO2 02/26/17 12:00 36.8 87 20 112/77 98 Room Air Exam General: well developed, well nourished young female, in no acute distress. HEENT: Normocephalic, atraumatic. Pupils equal, round, and reactive to light and accommodation. Anicteric sclerae, moist mucosa. Cardiovascular: Regular rate and rhythm with no murmurs, rubs, or gallops appreciated Pulmonary: Clear to auscultation bilaterally with no crackles, wheezes, or rhonchi. Normal respiratory effort with no use of accessory muscles. Abdomen: Bowel tones present. Soft, nontender, nondistended. No hepatosplenomegaly or masses appreciated. Extremities: No clubbing, cyanosis, edema appreciated Skin: Normal temperature, turgor, and texture Neurological: Cranial nerves grossly intact Psychiatric: Normal mood and affect, alert and oriented x3. Test 02/24/17 19:16 02/24/17 19:46 02/24/17 19:57 02/24/17 23:30 Hold Urine Received (Received) Magnesium Level 2.5mg/dL (1.6-2.6) Ketones Small (Negative) Urine Color Straw (YELLOW) Urine Appearance Clear (CLEAR,HAZY) Urine pH 5.5 (5.0-8.0) Urine Specific [place] 1.020 (1.003-1.035) Urine Protein Negativemg/dL (NEG,TRACE) Urine Glucose (UA) 1000mg/dL (NEGATIVE) Urine Ketones 40mg/dL (NEGATIVE) Urine Occult Blood Trace (NEGATIVE) Urine Nitrite Negative (NEGATIVE) Urine Bilirubin Negative (NEGATIVE) Urine Urobilinogen Normalmg/dL (NORMAL) Urine Leukocyte Esterase Negative (NEGATIVE) Urine RBC 0-2/hpf (0-2) Urine WBC 0-5/hpf (0-5) Urine Epithelial Cells None/hpf (NONE-MOD) Urine Crystals None seen (NONE SEEN) Urine Bacteria Few/hpf (NONE-FEW) Urine Hyaline Casts None/lpf (NONE) Urine Granular Casts None seen (NONE SEEN) Urine Waxy Casts None seen (NONE SEEN) Urine Red Blood Cell Casts None seen (NONE SEEN) Urine White Blood Cell Casts None seen (NONE SEEN) Urine Mucus None seen (None Seen) Urine Trichomonas None seen (NONE SEEN) Urine Yeast None (NONE SEEN) Urinalysis Comment None Urine Culture Reflexed Not indicated Troponin T 0.010ug/L (0.0-0.011) Test 02/25/17 21:10 02/26/17 03:05 Lipase 12U/L (13-60) White Blood Count 11.3th/mm3 (3.8-10.1) Red Blood Count 3.67mil/mm3 (3.90-5.20) Hemoglobin 10.7g/dL (12.0-15.6) Hematocrit 31.5% (35.0-46.0) Mean Corpuscular Volume 85.8fL (81-100) Mean Corpuscular Hemoglobin 29.2pg (27.0-35.0) Mean Corpuscular Hemoglobin Concent 34.0% (32.0-37.0) Red Cell Distribution Width 13.2% (12.3-15.4) Platelet Count 301bil/L (150-400) Neutrophils (%) (Auto) 51.9% (40-74) Lymphocytes (%) (Auto) 42.3% (14-46) Monocytes (%) (Auto) 4.9% (4-12) Eosinophils (%) (Auto) 0.4% (0-5) Basophils (%) (Auto) 0.2% (0-3) Sodium Level 139mEq/L (134-144) Potassium Level 3.6mEq/L (3.5-5.2) Chloride Level 111mEq/L (97-108) Carbon Dioxide Level 16mmol/L (18-29) Blood Urea Nitrogen 8mg/dL (6-20) Creatinine 0.93mg/dL (0.57-1.00) Estimat Glomerular Filtration Rate 109mL/min (>59) Glucose Level 148mg/dL (60-99) Calcium Level 7.8mg/dL (8.5-10.1) Total Bilirubin 0.5mg/dL (0.0-1.2) Aspartate Amino Transf (AST/SGOT) 12U/L (0-50) Alanine Aminotransferase (ALT/SGPT) 7U/L (0-32) Alkaline Phosphatase 62U/L (25-150) Total Protein 4.6g/dL (6.4-8.4) Albumin 2.6g/dL (3.4-5.0) Discharge Medications As needed Insulin Human Lispro (HumaLOG U100 Insulin Vial) 100 Unit/Ml Unit 1 UNIT SUBQ DIRECTED PRN PRN insulin pump As directed for insulin pump. Prescribed by: UBALDO EARLY MD Followup Plan Discharge Diet: Diabetic Discharge Activity: No restrictions Patient Instructions It is important that you follow up with Dr. Early from Endocrinology this February 28. Follow up with Primary Care Physician in 1-2 weeks to review hospital stay and diabetes management. Follow-up Provider: Ubaldo Early MD Follow-up with PCP in: Other (February 28, 2017 at 9:20am. ) Provider: Rosalba Han PA-C Follow-up in: 2 weeks Time spent Greater than 30 minutes was spent in preparation of discharge with greater than 50% of that time dedicated to patient counseling and coordination of care. . Attending Statement The patient was seen and examined together with Dr. Mroan on 02/26/2017 and I agree with the history, exam and plan as outlined in the note above. . copies to: Rosalba Han PA-C; Ubaldo Early MD, Courtney M DO February 26, 2017 16:42 Jarrod Liao MD February 27, 2017 18:36
[2017-02-26 17:02] VITALS: BP 113/76; PULSE 94; RESP 18; O2SAT 93
[2017-02-26] MEDS ORDERED: Insulin LISPRO 300 Unit/3 mL Inj SUBQ SCH (17:30)
--- NOTE | 2017-02-26 19:20 | NUR ---
Insulin drip/discharge Patient's mom arrived with personal pump and picked up insulin from pharmacy. Lantus given at 1715. Insulin drip stopped at 1715 after CBG 87. Next CBG check one hour later was 113. Pt set up her personal pump and took a shower. IV was removed. Telemetry leads had already been DC'd earlier in the shift. Pt was educated and also provided with DC packet. Pt understood when her appt was. Pt and Mother left the [facility] at 1915.
== END 2017-02-26 19:47 | disposition home or self-care (01) | DRG 638 ==
LOC: SED 17:48 → CCU 21:00 → PCC 02-25 18:33
PROVIDERS: ADMIT Internal Medicine; ATTEND Internal Medicine
PROC: 4A033R1 Measurement of Arterial Saturation, Peripheral, Percutaneous Approach (ICD-10-PCS; principal; 2017-02-24)
DX: E10.10 Type 1 diabetes mellitus with ketoacidosis without coma (principal); E87.1 Hypo-osmolality and hyponatremia; N17.9 Acute kidney failure, unspecified; Q60.0 Renal agenesis, unilateral; E87.5 Hyperkalemia; F17.210 Nicotine dependence, cigarettes, uncomplicated; Z91.14 Patient's other noncompliance with medication regimen; K90.0 Celiac disease